=== PATIENT | male | born 1970 | race Caucasian/White ===

== ENCOUNTER 2023-08-21 07:11 | Emergency (ER) | payer BC ==
[~2023-08-21] VITALS: Ht 177.8 cm; Wt 136.0 kg
[2023-08-21 07:13] VITALS: BP 163/80; PULSE 60; TEMP 98.3; O2SAT 98
[2023-08-21 07:47] LABS: BILIRUBIN,URINE NEGATIVE (Neg); CLARITY,URINE CLEAR (Clear); COLOR,URINE YELLOW (Yellow); GLUCOSE, URINE 250 mg/dl (Neg); KETONES,URINE TRACE mg/dl (Neg); LEUKOCYTE ESTERASE ,URINE NEGATIVE (Neg); NITRITES, URINE NEGATIVE (Neg); OCCULT BLOOD,URINE SMALL (Neg); PROTEIN,URINE NEGATIVE (Neg); UROBILINOGEN,URINE 0.2 E.U/dL (0.2-1.0)
[2023-08-21 07:53] LABS: SQUAMOUS EPITHELIAL CELL,UR FEW /LPF (FEW); UA COLLECTION TYPE CLN CATCH MIDSTREAM
[2023-08-21 07:54] LABS: BACTERIA,URINE NONE SEEN /HPF (Neg); TRANSITIONAL EPI CELLS,URINE FEW /HPF; WBC,URINE 0-4 /HPF (0-4)
[2023-08-21] MEDS ORDERED: ketorolac trometh. 30mg/ml inj. IM ONE (09:15)
[2023-08-21 11:00] VITALS: RESP 18
[2023-08-21] MEDS ORDERED: IBUP-24 PO (11:13)
[2023-08-21] MEDS ORDERED: ONDA4TAB12 PO (11:13)
== END 2023-08-21 11:37 | disposition home or self-care (01) ==
LOC: ER 07:11
DX: N23 Unspecified renal colic (principal); Z87.442 Personal history of urinary calculi; Z87.898 Personal history of other specified conditions
CPT/HCPCS: 74176; 81001; 96372; 99285; J1885

== ENCOUNTER 2024-09-08 09:49 | Inpatient (IN) | payer BC ==
[2024-09-08] VITALS (11 sets, daily range): BP systolic 125–150; BP diastolic 66–85; PULSE 65–96; RESP 16–20; TEMP 97.6–98.3; O2SAT 96–100
[~2024-09-08] VITALS: Ht 177.8 cm; Wt 129.6 kg
[~2024-09-08 09:49] MED LIST: IBUP-24 PO; ONDA-243 PO
[2024-09-08 10:36] LABS: BASOPHILS % (AUTO) 0.6 % (0-1); EOSINOPHILS # (AUTO) 0.1 X10'3 (0-0.9); EOSINOPHILS % (AUTO) 2.2 % (0-6); HEMATOCRIT 42.2 % (42.0-52.0); HEMOGLOBIN 14.4 g/dl (14.0-17.9); LYMPHOCYTES # (AUTO) 1.2 X10'3 (1.1-4.8); LYMPHOCYTES % (AUTO) 25.7 % (21-51); MEAN CORPUSCULAR HEMOGLOBIN 32.2 PG (27.0-31.0); MEAN CORPUSCULAR HGB CONC 34.1 g/dL (33.0-36.5); MEAN CORPUSCULAR VOLUME 94.3 FL (78-98); MEAN PLATELET VOLUME 8.4 FL (7.4-10.4); MONOCYTES # (AUTO) 0.4 X10'3 (0-0.9); MONOCYTES % (AUTO) 9.2 % (2-12); NEUTROPHILS % (AUTO) 62.3 % (42-75); PLATELET COUNT 102 X10'3 (140-440); RED BLOOD COUNT 4.48 X10'6 (4.70-6.10); RED CELL DISTRIBUTION WIDTH 15.1 % (11.5-14.5); WHITE BLOOD COUNT 4.8 X10'3 (4.5-11.0)
[2024-09-08 10:52] LABS: ALANINE AMINOTRANSFERASE 62 U/L (12-78); ALBUMIN 3.9 G/DL (3.4-5.0); ALBUMIN/GLOBULIN RATIO 1.1 (1.1-1.5); ALKALINE PHOSPHATASE 35 IU/L (46-116); ANION GAP 10 (8-16); ASPARTATE AMINO TRANSFERASE 56 U/L (10-37); BILIRUBIN,TOTAL 1.4 MG/DL (0.1-1.0); BLOOD UREA NITROGEN 13 MG/DL (7-18); BUN/CREATININE RATIO 11.6 (10.0-20.0); CALCIUM 8.9 MG/DL (8.5-10.1); CHLORIDE 101 MMOL/L (99-107); CREATININE 1.12 MG/DL (0.60-1.10); GLUCOSE 115 MG/DL (70-104); SODIUM 137 MMOL/L (135-145); TOTAL PROTEIN 7.4 G/DL (6.4-8.2); eCRCL 76 ML/MIN; eGFR 68 ML/MIN
[2024-09-08 10:59] LABS: PRO BRAIN NATRIURETIC PEPTIDE 194 PG/ML (0-125)
[2024-09-08] MEDS: aspirin 325mg tablet, delayed-release (Ecotrin) PO ONE (11:21)
[2024-09-08] MEDS ORDERED: SEMA0.258 INJ (11:31)
[2024-09-08] MEDS ORDERED: OMEP20CA16 PO (11:31)
[2024-09-08] MEDS ORDERED: CLON1TAB12 PO (11:31)
[2024-09-08] MEDS ORDERED: FLO0.4C PO (11:32)
[2024-09-08] MEDS ORDERED: VALS320T17 PO (11:32)
[2024-09-08] MEDS ORDERED: CARV80CP8 PO (11:32)
[2024-09-08] MEDS ORDERED: ATOR40TA72 PO (11:32)
[2024-09-08] MEDS ORDERED: GABA-1405 PO (11:32)
[2024-09-08] MEDS ORDERED: METF-900 PO (11:45)
[2024-09-08] MEDS ORDERED: acetaminophen 325mg tablet PO PRN ×2 (13:20)
[2024-09-08] MEDS ORDERED: ondansetron/PF 4mg/2ml inj IV PRN (13:20)
[2024-09-08] MEDS ORDERED: morphine 2 MG/ML inj. syringe IV PRN ×2 (13:20)
[2024-09-08] MEDS ORDERED: potassium Cl 20 mEq SR tablet PO PRN ×2 (13:20)
[2024-09-08] MEDS ORDERED: HYDROcodone/acetaminophen 10/325mg tab PO PRN (13:20)
[2024-09-08] MEDS ORDERED: potassium Cl 40MEQ/1/2NS 520ml 520 ML IV PRN (13:20)
[2024-09-08] MEDS ORDERED: magnesium sulf-water 2g/50mL 50 ML IV PRN (13:20)
[2024-09-08] MEDS ORDERED: magnesium Cl slow-release 64mg tablet PO PRN (13:20)
[2024-09-08] MEDS ORDERED: HYDROcodone/acetaminophen 5mg/325mg tablet PO PRN (13:20)
[2024-09-08] MEDS ORDERED: magnesium sulf-water 4G/100mL 100 ML IV PRN (13:20)
[2024-09-08] MEDS ORDERED: metoprolol tartrate 1mg/ml inj IV PRN (13:25)
[2024-09-08] MEDS ORDERED: dextrose 50%-water 50ml dispensing syringe IV PRN ×2 (13:25)
[2024-09-08] MEDS ORDERED: glucagon, human recombinant 1mg kit SUBCUT PRN (13:25)
[2024-09-08] MEDS ORDERED: DEXTROSE 15 GM of carb/4 tabs (each vial/BOTTLE has 4 tablets) PO PRN ×2 (13:25)
[2024-09-08] MEDS ORDERED: nitroGLYCERIN 0.4mg SUBLingual tab SL PRN (13:25)
[2024-09-08] MEDS ORDERED: aminophylline 250mg/10ml inj. IV PRN (13:25)
[2024-09-08] MEDS: regadenoson 0.4mg/5ml syringe IV PRN (15:14)
[2024-09-08] MEDS: INSULIN LISPRO 100 UNIT/ML INSULN.PEN MULTI-DOSE SQ SCH (17:00)
[2024-09-08] MEDS ORDERED: LORazepam 2 mg/ml vial IV PRN (18:00)
[2024-09-08] MEDS ORDERED: LORazepam 1 MG tablet PO PRN (18:00)
[2024-09-08] MEDS: nicotine 14mg patch - 24hr TD SCH (18:05)
[2024-09-08] MEDS: normal saline 1000ml 1,000 ML IV SCH (18:18)
[2024-09-08] MEDS: heparin, porcine 5000 units/ml vial SQ SCH (21:01)
[2024-09-08] MEDS: clonazePAM 1mg tablet PO PRN (21:38)
[2024-09-09 00:33] VITALS: RESP 17; O2SAT 99
[2024-09-09 02:00] VITALS: BP 137/67; PULSE 66; RESP 20; TEMP 97.7; O2SAT 99
[2024-09-09 07:00] VITALS: BP 133/94; PULSE 66; RESP 18; TEMP 97.6; O2SAT 90
[2024-09-09 07:02] LABS: BASOPHILS % (AUTO) 0.5 % (0-1); EOSINOPHILS # (AUTO) 0.1 X10'3 (0-0.9); EOSINOPHILS % (AUTO) 3.1 % (0-6); HEMOGLOBIN 13.7 g/dl (14.0-17.9); LYMPHOCYTES # (AUTO) 1.5 X10'3 (1.1-4.8); LYMPHOCYTES % (AUTO) 34.9 % (21-51); MEAN CORPUSCULAR HEMOGLOBIN 32.3 PG (27.0-31.0); MEAN CORPUSCULAR HGB CONC 34.2 g/dL (33.0-36.5); MEAN CORPUSCULAR VOLUME 94.4 FL (78-98); MEAN PLATELET VOLUME 8.9 FL (7.4-10.4); MONOCYTES # (AUTO) 0.4 X10'3 (0-0.9); MONOCYTES % (AUTO) 10.2 % (2-12); NEUTROPHILS # (AUTO) 2.2 X10'3 (1.8-7.7); NEUTROPHILS % (AUTO) 51.3 % (42-75); PLATELET COUNT 100 X10'3 (140-440); RED BLOOD COUNT 4.24 X10'6 (4.70-6.10); RED CELL DISTRIBUTION WIDTH 15.1 % (11.5-14.5); WHITE BLOOD COUNT 4.2 X10'3 (4.5-11.0)
[2024-09-09 07:24] LABS: ALANINE AMINOTRANSFERASE 70 U/L (12-78); ALBUMIN 3.5 G/DL (3.4-5.0); ALBUMIN/GLOBULIN RATIO 1.1 (1.1-1.5); ALKALINE PHOSPHATASE 33 IU/L (46-116); ANION GAP 12 (8-16); ASPARTATE AMINO TRANSFERASE 59 U/L (10-37); BILIRUBIN,TOTAL 1.1 MG/DL (0.1-1.0); BLOOD UREA NITROGEN 13 MG/DL (7-18); BUN/CREATININE RATIO 12.3 (10.0-20.0); CALCIUM 8.5 MG/DL (8.5-10.1); CHLORIDE 103 MMOL/L (99-107); CREATININE 1.06 MG/DL (0.60-1.10); GLUCOSE 96 MG/DL (70-104); POTASSIUM 3.9 MMOL/L (3.5-5.1); SODIUM 141 MMOL/L (135-145); TOTAL CARBON DIOXIDE 26.1 MMOL/L (24-32); TOTAL PROTEIN 6.8 G/DL (6.4-8.2); eCRCL 80 ML/MIN; eGFR 72 ML/MIN
[2024-09-09] MEDS: carVEDilol 12.5mg tablet PO SCH (08:10)
[2024-09-09] MEDS: losartan 50mg tablet PO SCH (08:10)
[2024-09-09] MEDS: pantoprazole 40mg Tablet.DR PO SCH (08:10)
[2024-09-09] MEDS: tamsulosin 0.4mg capsule PO SCH (08:10)
[2024-09-09] MEDS: atorvastatin 20mg tablet PO SCH (08:11)
[2024-09-09 11:00] VITALS: BP 131/69; PULSE 65; RESP 15; TEMP 97.4; O2SAT 98
[2024-09-09 11:24] LABS: CHOL/HDL RATIO 1.7 (0.00-4.99); CHOLESTEROL 120 MG/DL (0-200); HDL CHOLESTEROL 69 MG/DL (35-60); LDL CHOLESTEROL 43 MG/DL (50-100); TRIGLYCERIDES 71 MG/DL (20-135)
[2024-09-09] MEDS ORDERED: AMLO2.5T5 PO (11:51)
[2024-09-09] MEDS ORDERED: LOSA50TA64 PO (11:51)
[2024-09-09 12:01] VITALS: BP_SYST 131; PULSE 65
[2024-09-09] MEDS: amLODIPine 2.5mg tablet PO SCH (12:01)
== END 2024-09-09 12:29 | disposition home or self-care (01) | DRG 313 ==
LOC: ER 09:50 → ED HOLD 13:22 → PCU 3S 16:32
PROVIDERS: ADMIT Internal Medicine; ATTEND Internal Medicine
PROC: 4A02XM4 Measurement of Cardiac Total Activity, External Approach (ICD-10-PCS; principal; 2024-09-08)
PROC: 3E033HZ Introduction of Radioactive Substance into Peripheral Vein, Percutaneous Approach (ICD-10-PCS; 2024-09-08)
DX: R07.89 Other chest pain (principal); N17.9 Acute kidney failure, unspecified; Z68.41 Body mass index [BMI] 40.0-44.9, adult; I10 Essential (primary) hypertension; T50.995A Adverse effect of other drugs, medicaments and biological substances, initial encounter; E11.9 Type 2 diabetes mellitus without complications; E78.5 Hyperlipidemia, unspecified; I20.9 Angina pectoris, unspecified; E66.01 Morbid (severe) obesity due to excess calories; F17.290 Nicotine dependence, other tobacco product, uncomplicated; Z79.84 Long term (current) use of oral hypoglycemic drugs; Z79.899 Other long term (current) drug therapy; Y92.89 Other specified places as the place of occurrence of the external cause
CPT/HCPCS: 36415; 71045; 78452; 80053; 80061; 82948; 83036; 83880; 84484; 85025; 87081; 93005; 93017; 93306; 99285; A9500; G0378; J1644; J1815; J2785; J7030

== ENCOUNTER 2024-10-07 10:50 | Day surgery (SDC) | payer BC ==
[~2024-10-07] VITALS: Ht 177.8 cm; Wt 134.6 kg
[2024-10-07] VITALS (7 sets, daily range): BP systolic 141–158; BP diastolic 71–97; PULSE 59–68; RESP 16; TEMP 99; O2SAT 94–97
[~2024-10-07 10:50] MED LIST changes: +AMLO2.5T5 PO; +ATOR40TA72 PO; +CARV80CP8 PO; +CLON1TAB12 PO; +FLO0.4C PO; +GABA-1405 PO; -IBUP-24 PO; +LOSA50TA64 PO; +METF-900 PO; +OMEP20CA16 PO; -ONDA-243 PO
[2024-10-07] MEDS: normal saline 1,000 ML IV SCH (11:10)
[2024-10-07] MEDS ORDERED: LOSA50TA64 PO (12:49)
[2024-10-07] MEDS ORDERED: FENO54TA PO (12:49)
[2024-10-07] MEDS ORDERED: AMLO2.5T4 PO (12:49)
[2024-10-07] MEDS ORDERED: HYDR-3972 PO (12:49)
[2024-10-07 13:00] LABS: BASOPHILS % (AUTO) 0.4 % (0-1); EOSINOPHILS # (AUTO) 0.2 X10'3 (0-0.9); EOSINOPHILS % (AUTO) 4.5 % (0-6); HEMATOCRIT 34.7 % (42.0-52.0); HEMOGLOBIN 12.1 g/dl (14.0-17.9); LYMPHOCYTES # (AUTO) 1.5 X10'3 (1.1-4.8); LYMPHOCYTES % (AUTO) 37.9 % (21-51); MEAN CORPUSCULAR HEMOGLOBIN 32.9 PG (27.0-31.0); MEAN CORPUSCULAR HGB CONC 34.7 g/dL (33.0-36.5); MEAN CORPUSCULAR VOLUME 94.7 FL (78-98); MONOCYTES # (AUTO) 0.5 X10'3 (0-0.9); MONOCYTES % (AUTO) 11.6 % (2-12); NEUTROPHILS # (AUTO) 1.8 X10'3 (1.8-7.7); NEUTROPHILS % (AUTO) 45.6 % (42-75); PLATELET COUNT 97 X10'3 (140-440); RED BLOOD COUNT 3.67 X10'6 (4.70-6.10); RED CELL DISTRIBUTION WIDTH 17.3 % (11.5-14.5)
[2024-10-07] MEDS ORDERED: fentaNYL/PF 50MCG/1 ML 2ML syringe ONE (13:03)
[2024-10-07] MEDS ORDERED: midazolam 1 mg/ML 2ml injection ONE (13:03)
[2024-10-07] MEDS ORDERED: LIDOcaine 1% (10mg/ml) 2ml vial ONE (13:03)
[2024-10-07] MEDS ORDERED: iohexol 350MG/ML 100ml bottle IV ONE (13:03)
[2024-10-07] MEDS ORDERED: heparin 1,000unit/ml 10ml vial 10 ML ONE (13:03)
[2024-10-07] MEDS ORDERED: verapamil 2.5 mg/ml inj IV ONE (13:03)
[2024-10-07 13:09] LABS: ALBUMIN 3.4 G/DL (3.4-5.0); ANION GAP 8 (8-16); BLOOD UREA NITROGEN 12 MG/DL (7-18); BUN/CREATININE RATIO 12.8 (10.0-20.0); CALCIUM 8.5 MG/DL (8.5-10.1); CHLORIDE 109 MMOL/L (99-107); CREATININE 0.94 MG/DL (0.60-1.10); GLUCOSE 101 MG/DL (70-104); POTASSIUM 3.4 MMOL/L (3.5-5.1); SODIUM 145 MMOL/L (135-145); TOTAL CARBON DIOXIDE 27.7 MMOL/L (24-32); eCRCL 91 ML/MIN; eGFR 83 ML/MIN
[2024-10-07 13:11] LABS: APTT 25 SECONDS (22-32); PROTHROMBIN TIME 10.8 SECONDS (9.0-12.0)
[2024-10-07] MEDS ORDERED: nitroGLYCERIN 500mcg/5mL D5W 5 ML IV ONE (13:19)
[2024-10-07] MEDS: LORazepam 0.5 MG tablet PO PRN (13:19)
[2024-10-07] MEDS: diphenhydrAMINE 25mg capsule PO PRN (13:19)
[2024-10-07] MEDS ORDERED: HYDROcodone/acetaminophen 5mg/325mg tablet PO PRN (14:30)
[2024-10-07] MEDS ORDERED: HYDROcodone/acetaminophen 10/325mg tab PO PRN (14:30)
== END 2024-10-07 16:00 | disposition home or self-care (01) ==
LOC: SSTAY O 10:50
PROVIDERS: ATTEND Internal Medicine Interventional Cardiology
DX: R94.39 Abnormal result of other cardiovascular function study (principal); I49.1 Atrial premature depolarization; I10 Essential (primary) hypertension; E11.42 Type 2 diabetes mellitus with diabetic polyneuropathy; E78.00 Pure hypercholesterolemia, unspecified; E66.9 Obesity, unspecified; K21.9 Gastro-esophageal reflux disease without esophagitis; F41.9 Anxiety disorder, unspecified; Z79.891 Long term (current) use of opiate analgesic; Z79.899 Other long term (current) drug therapy; Z68.41 Body mass index [BMI] 40.0-44.9, adult
CPT/HCPCS: 36415; 80048; 85025; 85610; 85730; 93005; 93458; 96360; 99152; J1644; J2003; J2250; J3010; J3490; J7030; Q0163; Q9967; A6258; C1769; C1894